=== PATIENT | female | born 1960 | race Caucasian/White ===

== ENCOUNTER 2019-06-28 21:26 | Emergency (ER) | payer OTHER, SELFPAY ==
--- NOTE | ~2019-06-28 | CT_ITS ---
EXAMINATION: CT abdomen pelvis w con INDICATION: Left lower quadrant pain TECHNIQUE: Computed tomographic images of the abdomen and pelvis were obtained after the administrati on of 100 cc of Omnipaque 350 intravenous contrast. The dose-length product (DLP) was 541.15 mGy-cm. Automated exposure control and iterative reconstruction technique were employed. COMPARISON: None available FINDINGS: The lung bases are clear. The heart size is normal. There is an 11 mm cyst of the liver. Th e spleen, pancreas, gallbladder, and adrenal glands are normal. There is a 2 mm nonobstructing stone in the left kidney upper pole. The right kidney is unremarkable. No pathologically enlarged abdominal or pelvic lymph nodes are identified. The appendix is normal. Colonic diverticulosis is noted. There is wall thickening and fat stranding adjacent to the proximal sigmoid colon. No free intraperitoneal gas or perisigmoid abscess is identified. There is mild lumbar spondylosis. IMPRESSION: 1. Uncomplicated sigmoid diverticulitis. Reviewed, dictated and finalized at location A.
[2019-06-28 21:28] VITALS: BP 147/98; PULSE 96; RESP 16; TEMP 36.6; O2SAT 100
[2019-06-28 21:50] LABS: Basophils Absolute Auto 0.1 K/mm3 (0.0-0.1); Basophils Percent Auto 0.5 % (0.2-1.2); Eosinophils Absolute Auto 0.1 K/mm3 (0-0.3); Eosinophils Percent Auto 0.5 % (0-4.4); Hematocrit 41.5 % (37.0-47.0); Hemoglobin 13.9 g/dL (12.0-15.0); Immature Granulocyte Absolute 0.04 K/mm3 (0.00-0.031); Immature Granulocyte Percent A 0.3 % (0-0.5); Lymphocytes Absolute Auto 2.24 K/mm3 (0.9-3.2); Lymphocytes Percent Auto 18.6 % (18.3-44.2); Mean Corpuscular HGB Conc 33.5 g/dl (32-36); Mean Corpuscular Hemoglobin 30.2 pg (26-34); Mean Platelet Volume 9.5 fl (7.4-10.4); Monocytes Absolute Auto 1.1 K/mm3 (0.1-0.6); Monocytes Percent Auto 9.2 % (2.6-8.5); Neutrophils Absolute Auto 8.5 K/mm3 (1.3-6.7); Neutrophils Percent Auto 70.9 % (45.5-73.1); Platelet Count Result 317 k/mm3 (150-375); Red Blood Count 4.61 M/mm3 (4.2-5.4)
[2019-06-28 21:53] LABS: Add Urine Microscopic? NO; Appearance Urine Clear (Clear); Bilirubin Urine Negative (Negative); Blood Urine Negative (Negative); Color Urine Straw (Yellow); Glucose Urine UA Negative (Negative); Ketones Urine Negative (Negative); Leukocyte Esterase Ur Negative LEU/UL (Negative); Nitrate Urine Negative (Negative); Protein Urine Negative (Negative); Urobilinogen Urine Negative mg/dL (<2.0)
[2019-06-28 22:02] LABS: Alanine Aminotransferase 19 U/L (4-35); Albumin Level 5.1 g/dL (3.5-5.1); Alkaline Phosphatase 96 U/L (38-126); Aspartate Amino Transferase 39 U/L (14-36); Bilirubin,Total 2.1 mg/dL (0.2-1.3); Blood Urea Nitrogen 14 mg/dL (7-17); Calcium 9.5 mg/dL (8.4-10.2); Carbon Dioxide 33 mmol/L (22-30); Chloride 96 mmol/L (98-107); Estimated Glomerular Filt Rate > 60; Glucose 112 mg/dL (65-105); Lipase 110 U/L (23-300); Potassium 3.5 mmol/L (3.4-5.0); Sodium 136 mmol/L (137-145)
--- NOTE | 2019-06-28 22:33 | ED.ABDPAIN ---
HPI - Abdominal Pain General Chief Complaint: Abdominal Pain Stated Complaint: abd pain Time Seen by Provider: 06/28/19 22:26 Source: patient Mode of arrival: ambulatory Limitations: no limitations History of Present Illness HPI narrative: Patient is a 58-year-old female who presents to the emergency department complaint of left lower quadrant pain. Patient reports having a rumbling sensation in her abdomen 2 days ago that subsided. She states she felt pretty well yesterday. She states today she has had pain in the left lower quadrant of her abdomen since approximately 9:00 this morning. She took a couple of stool softeners and some antiacid this morning and now has developed a little bit of diarrhea. She states the pain seems to improve somewhat when passing gas. She took a Bentyl approximately 8 PM this evening without any relief. Patient does report a prior history of diverticulitis. MD elicited complaint: abdominal pain Review of Systems Review of Systems: All systems reviewed & are unremarkable except as noted in HPI and below Gastrointestinal: Gastrointestinal: Reports abdominal pain, Reports diarrhea, Denies nausea and Denies vomiting PMFSH Past Medical History Medical History (Updated 06/29/19 @ 00:14 by Kathy Torres MD) Diverticulitis GERD (gastroesophageal reflux disease) Hyperlipidemia Vitamin D deficiency Surgical History Surgical History (Updated 06/28/19 @ 22:34 by Kathy Torres MD) History of section Social History Social History (Updated 06/28/19 @ 22:34 by Kathy Torres MD) Smoking status: Never smoker Exam Const: General: cooperative, no acute distress and alert Nutritional Appearance: well nourished Orientation/consciousness: patient oriented x3 Limitations: no limitations Resp: Effort & Inspection: normal respiratory effort Auscultation: clear to auscultation bilaterally Cardio: Rate: regular rate Rhythm: regular rhythm GI: GI Palp: Yes Soft to palpation, Yes Tenderness to palpation present (GI) (Focal left lower quadrant), No Guarding due to palpation present (GI) and No Rebound tenderness present Auscultation: normal bowel sounds Back/Spine/Pelvis: Back: no CVA tenderness Thoracic/Lumbar Spine: thoraco-lumbar ROM normal Skin: General skin exam: normal color and no rashes or lesions noted Neuro: General: patient oriented x3 Cognition (Neuro): normal cognition Speech: normal speech Extrem: General: normal to inspection, full ROM and no clubbing, cyanosis or edema Psych: Mental Status: mental status grossly normal Affect: normal affect Attitude: cooperative Course Course Emergency Course: Patient presents with left lower quadrant pain and history of diverticulitis in the past. Patient with findings of uncomplicated diverticulitis noted on CT scan. Patient with no grossly abnormal labs aside from bilirubin is slightly elevated. Will refer patient to on-call primary care physician as she is new to the area. Advised to call the office in the morning to schedule follow-up. Will prescribe Augmentin. Patient reports history of stomach upset in the past. Advised to take with food Vital Signs Vital signs: Vital Signs Temperature 97.8 F 06/28/19 21:28 Pulse Rate 96 06/28/19 21:28 Respiratory Rate 16 06/28/19 21:28 Blood Pressure 147/98 H 06/28/19 21:28 Pulse Oximetry 100 06/28/19 21:28 Temperature 97.3 F L 06/28/19 23:04 Pulse Rate 93 06/28/19 23:04 Respiratory Rate 20 06/28/19 23:04 Blood Pressure 155/93 H 06/28/19 23:04 Pulse Oximetry 100 06/28/19 23:04 MDM - Abdominal Pain Lab Data Attestation: I reviewed the patient's lab results. Result diagrams: 06/28/19 21:42 06/28/19 21:42 Labs: Lab Results 06/28/19 06/28/19 06/28/19 Range/Units 21:42 21:42 21:43 WBC 12.0 H (4.5-10.0) K/mm3 RBC 4.61 (4.2-5.4) M/mm3 Hgb 13.9 (12.0-15.0) g/dL Hct 41.5 (37.0-47
[2019-06-28 23:04] VITALS: BP 155/93; PULSE 93; RESP 20; TEMP 36.3; O2SAT 100
[2019-06-29 00:23] VITALS: BP 145/74; PULSE 84; RESP 19; TEMP 36.8; O2SAT 100
[2019-06-29] MEDS: AMOXICILLIN/CLAVULANATE K 875-125 MG TAB 1 TABLET PO (00:23)
== END 2019-06-29 00:24 | disposition home or self-care (01) ==
PROVIDERS: Emergency Provider Emergency Medicine
DX: K57.32 Diverticulitis of large intestine without perforation or abscess without bleeding (principal); K21.9 Gastro-esophageal reflux disease without esophagitis; E78.5 Hyperlipidemia, unspecified; E55.9 Vitamin D deficiency, unspecified
CPT/HCPCS: 36415; 74177; 80053; 81003; 83690; 85025; 96365; 99284; A9270; J0131; Q9967

== ENCOUNTER → 2019-08-28 10:25 | Outpatient (CLI) | payer OTHER, SELFPAY ==
--- NOTE | ~2019-08-28 | MR_ITS ---
EXAMINATION: MR brain IAC wo con EXAM DATE: 08/28/2019 11:23 INDICATION: Dizziness. Occipital headaches. TECHNIQUE: Multi-sequential, multiplanar MR images of the brain, brainstem, internal auditory canals were obtained without contrast. Whole brain sagittal T1, axial diffusion, gradient echo (T2*), T1, T 2, FLAIR sequences obtained. High resolution coronal 3-D FIESTA, coronal T1 FSE, axial T1 FSPGR of t he internal auditory canals. There is no prior study for comparison. FINDINGS: No evidence of mastoid or middle ear opacification. The 7th/8th cranial nerve complexes a re symmetric, normal in course and caliber. No cerebellopontine angle masses. Posterior fossa unrem arkable. There are no areas of restricted diffusion to suggest acute infarction. There is no acute hemorrhage seen on the T2*, a hemosiderin sensitive sequence. No intraparenchymal brain mass lesion. There is mild periventricular and subcortical T2/FLAIR signal hyperintensity, nonspecific but probably related to small vessel ischemic disease (microangiopathy). There is mild prominence of the sulci and vent ricles related to cerebral atrophy. There are no extra-axial collections. Flow voids are seen in t he cerebral arteries on the T2-weighted sequences consistent with their expected patency. The orbits are unremarkable. Soft tissue is unremarkable. IMPRESSION: 1. No acute intracranial findings. 2. Chronic age related findings. Reviewed, dictated and finalized at location A.
== END ==
PROVIDERS: PCP Physician Assistant; Visit Provider Physician Assistant
DX: R42 Dizziness and giddiness (principal); R93.0 Abnormal findings on diagnostic imaging of skull and head, not elsewhere classified
CPT/HCPCS: 70551

== ENCOUNTER → 2019-09-01 10:04 | Outpatient (CLI) | payer OTHER, SELFPAY ==
--- NOTE | ~2019-09-01 | US_ITS ---
EXAMINATION: US aorta DATE: 09/01/2019 10:39 INDICATION: Hypertension and hypercholesterolemia TECHNIQUE: Grayscale, color Doppler, and pulsed Doppler images of the aorta and common iliac arteries were obtained. COMPARISON: None. FINDINGS: Maximum vascular dimensions are as follows: Proximal aorta: 2.7 cm Mid aorta: 2.0 cm Distal aorta: 1.8 cm Right common iliac artery: 1.1 cm Left common iliac artery: 0.9 cm There is no evidence of abdominal aortic aneurysm. IMPRESSION: 1. No sonographic evidence of abdominal aortic aneurysm. Reviewed, dictated and finalized at location A.
--- NOTE | ~2019-09-01 | US_ITS ---
EXAMINATION: US carotid duplex BI DATE: 09/01/2019 10:39 INDICATION: Vertigo. TECHNIQUE: Grayscale, color Doppler, and pulsed Doppler images of the cervical carotid arteries were obtained. The degree of vessel stenosis is placed in one of the following categories: normal, <50%, 5 0-69%, >=70% but less than near-occlusion, near-occlusion, or total occlusion. Note that percent sten osis relative to normal distal artery lumen diameter is indirectly measured from velocity measurement s as described by Mehul, et al. Radiology 2003; 229:340-346. COMPARISON: None. FINDINGS: RIGHT: The right common carotid artery (CCA) peak systolic velocity (PSV) is 99 cm/s. The right internal car otid artery (ICA) PSV is 77 cm/s. The right ICA end-diastolic velocity (EDV) is 36 cm/s. The right IC A/CCA PSV ratio is 1.3. Grayscale and color Doppler images yield an estimate of <50% diameter reducti on from plaque in the ICA. There is antegrade flow in the right vertebral artery. LEFT: The left CCA PSV is 84 cm/s. The left ICA PSV is 83 cm/s. The left ICA EDV is 30 cm/s. The left ICA/C CA PSV ratio is 1.6. Grayscale and color Doppler images yield an estimate of <50% diameter reduction from plaque in the ICA. There is antegrade flow in the left vertebral artery. IMPRESSION: 1. <50% stenosis in the right internal carotid artery. 2. <50% stenosis in the left internal carotid artery. Reviewed, dictated and finalized at location A.
== END ==
PROVIDERS: PCP Physician Assistant; Visit Provider Physician Assistant
DX: I65.23 Occlusion and stenosis of bilateral carotid arteries (principal); Z82.49 Family history of ischemic heart disease and other diseases of the circulatory system
CPT/HCPCS: 76775; 93880

== ENCOUNTER 2019-11-06 12:52 | Outpatient (CLI) | payer OTHER, SELFPAY ==
--- NOTE | 2019-11-06 | ECHO_ITS ---
Patient Info Name: Kathy Mattson Age: 59 years : 1960 Gender: Female Ht: 67 in Wt: 165 lbs BSA: 1.89 m2 BP: 149 / 93 mmHg Heart Rhythm: Sinus Rhythm Exam Date: 11/06/2019 1:20 PM Exam Location: [facility] Patient Status: Outpatient Admit Date: 11/06/2019 Staff Ordering Physician: PHYSICIAN NOT ON STAFF, NONSTAFF Hand Developer: Bonnie Zelaya RDCS Attending Provider: PHYSICIAN NOT ON STAFF, NONSTAFF Exam Type: CA echo doppler color flow Study Info Indications R00.2 - Palpitations Complete two-dimensional, color flow and Doppler transthoracic echocardiogram is performed. Summary 1. Complete two-dimensional, color flow and Doppler transthoracic echocardiogram is performed. 2. Left ventricular chamber dimension is normal. 3. Left ventricular systolic function is normal, estimated at 55-60%. 4. Right ventricular chamber dimension is normal. 5. Trivial mitral and tricuspid insufficiency. Left Ventricle Left ventricular chamber dimension is normal. Left ventricular systolic function is normal, estimated at 55-60%. The left ventricular diastolic function is normal. Right Ventricle Right ventricular chamber dimension is normal. Left Atria Left atrial chamber dimension is normal. Right Atria Right atrial chamber dimension is normal. Aortic Valve The aortic valve is normal. Pulmonic Valve The pulmonic valve is normal. Mitral Valve The mitral valve has normal leaflets. There is trace mitral valve regurgitation. Tricuspid Valve The tricuspid valve leaflets are normal. There is mild tricuspid valve regurgitation. Pericardium/Pleural The pericardium appears normal. Aorta The aortic root size at the sinus of Valsalva is normal. Left Ventricular Outflow Tract Name Value Normal LVOT 2D LVOT Diameter 2.0 cm LVOT Doppler LVOT Peak Gradient 3 mmHg LVOT Mean Gradient 1 mmHg LVOT VTI 17 cm LVOT VTI/AV VTI Ratio 0.8 LVOT Stroke Volume 51 ml LVOT CO 3.1 l/min LVOT CI 1.7 l/min/m2 Mitral Valve Name Value Normal MV Doppler MV Decel Bowie 482 cm/s2 MV PHT 47 ms MV Area (PHT) 4.7 cm2 4.0-5.0 MV Regurgitation Doppler MR Peak Gradient 165 mmHg MV Diastolic Function MV E Peak Velocity 78 cm/s MV A Peak Velocity 85 cm/s MV E/A 0.9 MV Decel Time
== END 2019-11-06 12:53 | disposition home or self-care (01) ==
PROVIDERS: PCP Physician Assistant
DX: R00.2 Palpitations (principal)
CPT/HCPCS: 93306

== ENCOUNTER → 2019-12-14 10:24 | Outpatient (CLI) | payer OTHER, SELFPAY ==
--- NOTE | ~2019-12-14 | XR_ITS ---
EXAMINATION: XR knee LT min 4V DATE: 12/14/2019 10:51 INDICATION: Left knee pain TECHNIQUE: Weight bearing anteroposterior and Vera, sunrise, and flexed lateral views of the lef t knee were obtained COMPARISON: None. FINDINGS: Alignment is normal. No fracture. Joint spaces are normal. No joint effusion/layering lipohemarthros is. Soft tissues are unremarkable. IMPRESSION: 1. Negative left knee radiographs. Reviewed, dictated and finalized at location A. COACH
== END ==
PROVIDERS: PCP Physician Assistant; Visit Provider Physician Assistant
DX: M25.562 Pain in left knee (principal)
CPT/HCPCS: 73564

== ENCOUNTER 2020-05-31 20:31 | Emergency (ER) | payer OTHER, SELFPAY ==
--- NOTE | ~2020-05-31 | CT_ITS ---
EXAMINATION: CT abdomen pelvis w con DATE: 05/31/2020 22:57 INDICATION: Abdominal pain and nausea TECHNIQUE: Computed tomography (CT) of the abdomen and pelvis was performed with 100 cc Omnipaque 350 intravenous contrast. The dose-length product was 473.09 mGy-cm. Automated exposure control and iter ative reconstruction technique were employed. COMPARISON: CT dated 06/28/2019. FINDINGS: Lung bases are unremarkable. No significant pleural or pericardial effusion. The liver, spleen, pancreas, adrenal glands and right kidney are unremarkable. There is a 3 mm nonobs tructing left renal stone. Nonobstructing bowel gas pattern. Normal appendix. Colonic diverticulosis without evidence for divert iculitis. There is a focal calcification in a urachal remnant. There are pelvic phleboliths. No signi ficant vascular abnormality. No lymphadenopathy. Mild osteoarthritis of the hips. Mild lumbar spondyl osis. IMPRESSION: 1. No acute abdominal abnormality. Reviewed, dictated and finalized at location A.
[2020-05-31 20:34] VITALS: BP 175/97; PULSE 72; RESP 18; TEMP 36.4; O2SAT 100
[2020-05-31 20:49] LABS: Basophils Percent Auto 0.5 % (0.2-1.2); Eosinophils Absolute Auto 0.1 K/mm3 (0-0.3); Eosinophils Percent Auto 1.3 % (0-4.4); Hematocrit 39.7 % (37.0-47.0); Hemoglobin 13.2 g/dL (12.0-15.0); Immature Granulocyte Absolute 0.02 K/mm3 (0.00-0.031); Immature Granulocyte Percent A 0.3 % (0-0.5); Lymphocytes Absolute Auto 2.66 K/mm3 (0.9-3.2); Lymphocytes Percent Auto 34.8 % (18.3-44.2); Mean Corpuscular HGB Conc 33.2 g/dl (32-36); Mean Corpuscular Hemoglobin 30.4 pg (26-34); Mean Corpuscular Volume 91.5 fl (80-100); Mean Platelet Volume 8.9 fl (7.4-10.4); Monocytes Absolute Auto 0.7 K/mm3 (0.1-0.6); Monocytes Percent Auto 8.9 % (2.6-8.5); Neutrophils Absolute Auto 4.2 K/mm3 (1.3-6.7); Neutrophils Percent Auto 54.2 % (45.5-73.1); Platelet Count Result 290 k/mm3 (150-375); Red Blood Count 4.34 M/mm3 (4.2-5.4); Red Cell Distribution Width 12.4 % (11.5-14.5); White Blood Count 7.7 K/mm3 (4.5-10.0)
[2020-05-31 21:13] LABS: Alanine Aminotransferase 16 U/L (4-35); Albumin Level 4.8 g/dL (3.5-5.1); Alkaline Phosphatase 77 U/L (38-126); Anion Gap 7 mmol/L (8-16); Aspartate Amino Transferase 37 U/L (14-36); Bilirubin,Total 1.2 mg/dL (0.2-1.3); Blood Urea Nitrogen 19 mg/dL (7-17); Calcium 9.1 mg/dL (8.4-10.2); Carbon Dioxide 31 mmol/L (22-30); Chloride 101 mmol/L (98-107); Estimated CRCL calculation 82 ml/min; Estimated Glomerular Filt Rate > 60; Glucose 110 mg/dL (65-105); Lipase 164 U/L (23-300); Potassium 3.5 mmol/L (3.4-5.0); Sodium 139 mmol/L (137-145)
--- NOTE | 2020-05-31 21:23 | ED.GENADULT ---
HPI - General Adult General Chief complaint: Nausea/Vomiting/Diarrhea Stated complaint: abd pain, nausea Time Seen by Provider: 05/31/20 21:21 Source: patient and family Mode of arrival: ambulatory Limitations: no limitations History of Present Illness HPI narrative: Patient is 59 years old white female presented to the emergency room with intermittent pain across mid abdomen with nausea for the last 7 days. The pain is gas-like feeling. Get better after she passes gas, nothing make it worse. Patient got [employer] vaccine few weeks ago and and was concerned about the side effect of that vaccine. Which mentioned can cause abdominal pain. Patient denies any fever, chills, urinary symptoms, vaginal bleeding or discharge. No history of abdominal surgery. Review of Systems Review of Systems: Narrative: CONSTITUTIONAL: Denies fever, chills, or sweats. EYES: Denies visual changes, redness, or discharge. ENT: Denies rhinorrhea, congestion, sore throat, or otalgia. CARDIOVASCULAR: Denies chest pain, palpitations, or edema. RESPIRATORY: Denies cough or dyspnea. GASTROINTESTINAL: Denies abdominal pain, nausea, vomiting, or diarrhea. GENITOURINARY: Denies dysuria or hematuria. SKIN: Denies rash or itching. MUSCULOSKELETAL: Denies back pain, joint pain, or myalgia. NEUROLOGIC: Denies headache, numbness, or weakness. PSYCHIATRIC: Denies anxiety or depression. PMFSH Past Medical History Medical History Diverticulitis GERD (gastroesophageal reflux disease) Hyperlipidemia Vitamin D deficiency Surgical History Surgical History History of section Social History Social History Smoking status: Never smoker Exam Narrative: Exam Narrative: General appearance: Well-developed, well-nourished Skin: Normal color Head: Normocephalic, nontraumatic Eyes: Clear conjunctiva ENT: Oropharynx normal, ears normal, nose normal Neck: Supple, nontender Chest and respiratory: Airway patent, no respiratory distress, no accessory muscle use Heart: Regular rate/rhythm Abdomen: Soft, slight diffuse tenderness, no organomegaly, quiet bowel sounds, no guarding or rebound Vascular: Normal peripheral pulses, normal capillary refill. Musculoskeletal: Normal range of motion, nontender back Neurologic: Alert and oriented ?3, FOOD STAND MANAGER is normal as tested, no gross motor deficit Course Course Emergency Course: Stable Vital Signs Vital signs: Vital Signs Temperature 36.4 C L 05/31/20 20:34 Pulse Rate 72 05/31/20 20:34 Respiratory Rate 18 05/31/20 20:34 Blood Pressure 175/97 H 05/31/20 20:34 Pulse Oximetry 100 05/31/20 20:34 Temperature 36.4 C L 05/31/20 20:34 Pulse Rate 72 05/31/20 20:34 Respiratory Rate 18 05/31/20 20:34 Blood Pressure 175/97 H 05/31/20 20:34 Pulse Oximetry 100 05/31/20 20:34 Medical Decision Making MDM Narrative Medical decision making narrative: Patient presents with abdominal pain and nausea, anxious about the possibility of COVID-19 vaccine causing her abdominal pain. Labs, CT abdomen pelvis with IV contrast ordered. Please look at my differential diagnosis below Differential Diagnosis Differential Diagnosis: Colitis, diverticulitis, urinary tract infection, cholecystitis, constipation, stress related symptoms Vital Signs Vital Signs: Vital Signs Temperature 36.4 C L 05/31/20 20:34 Pulse Rate 72 05/31/20 20:34 Respiratory Rate 18 05/31/20 20:34 Blood Pressure 175/97 H 05/31/20 20:34 Pulse Oximetry 100 05/31/20 20:34 Temperature 36.4 C L
[2020-05-31 21:26] LABS: Add Urine Microscopic? NO; Appearance Urine Clear (Clear); Bilirubin Urine Negative (Negative); Blood Urine Negative (Negative); Color Urine Straw (Yellow); Glucose Urine UA Negative (Negative); Ketones Urine Negative (Negative); Leukocyte Esterase Ur Negative LEU/UL (Negative); Nitrate Urine Negative (Negative); Protein Urine Negative (Negative); Specific Grav Ur 1.009 (1.001-1.035); Urobilinogen Urine Negative mg/dL (<2.0)
[2020-05-31] MEDS: SODIUM CHLORIDE 0.9% IV 1,000 ML 999 ML IV CONT (21:35)
[2020-05-31 23:22] VITALS: BP 132/81; PULSE 79; RESP 18; O2SAT 97
== END 2020-05-31 23:23 | disposition home or self-care (01) ==
PROVIDERS: Emergency Provider Emergency Medicine; PCP Physician Assistant
DX: R10.84 Generalized abdominal pain (principal); K21.9 Gastro-esophageal reflux disease without esophagitis; E78.5 Hyperlipidemia, unspecified; E55.9 Vitamin D deficiency, unspecified
CPT/HCPCS: 36415; 74177; 80053; 81003; 83690; 85025; 96360; 96361; 99284; J7030; Q9967

== ENCOUNTER 2020-10-17 03:25 | Emergency (ER) | payer OTHER, SELFPAY ==
--- NOTE | ~2020-10-17 | XR_ITS ---
EXAMINATION: XR chest 2V DATE: 10/17/2020 04:00 INDICATION: Tachycardia. TECHNIQUE: Frontal and lateral views of the chest were obtained. COMPARISON: CT abdomen and pelvis 05/31/2020 FINDINGS: There is mild atelectasis at left lung base. No pleural effusion or pneumothorax. The heart size is normal. IMPRESSION: 1. Mild atelectasis at left lung base. Reviewed, dictated and finalized at location A.
--- NOTE | 2020-10-17 03:27 | ECG_ITS ---
Measurements Intervals [place] Rate: 92 P: 63 OK: 177 QRS: 62 QRSD: 88 T: 46 QT: 338 QTc: 419 Interpretive Statements SINUS RHYTHM POSSIBLE LEFT ATRIAL ENLARGEMENT BASELINE ARTIFACT- I, II, III, AVR, AVL, AVF, V1-V6 BORDERLINE ECG Electronically Signed On 10-17-2020 8:23:09 CDT by Ryan Bear D.O.
[2020-10-17 03:29] VITALS: BP 164/97; PULSE 92; RESP 13; TEMP 38; O2SAT 100
[2020-10-17 04:05] LABS: Basophils Percent Auto 0.7 % (0.2-1.2); Eosinophils Absolute Auto 0.1 K/mm3 (0-0.3); Eosinophils Percent Auto 0.9 % (0-4.4); Hematocrit 41.8 % (37.0-47.0); Hemoglobin 13.6 g/dL (12.0-15.0); Immature Granulocyte Absolute 0.02 K/mm3 (0.00-0.031); Immature Granulocyte Percent A 0.4 % (0-0.5); Lymphocytes Absolute Auto 1.52 K/mm3 (0.9-3.2); Lymphocytes Percent Auto 26.8 % (18.3-44.2); Mean Corpuscular HGB Conc 32.5 g/dl (32-36); Mean Corpuscular Hemoglobin 29.7 pg (26-34); Mean Corpuscular Volume 91.3 fl (80-100); Mean Platelet Volume 9.9 fl (7.4-10.4); Monocytes Absolute Auto 0.4 K/mm3 (0.1-0.6); Monocytes Percent Auto 7.4 % (2.6-8.5); Neutrophils Absolute Auto 3.6 K/mm3 (1.3-6.7); Neutrophils Percent Auto 63.8 % (45.5-73.1); Platelet Count Result 336 k/mm3 (150-375); Red Blood Count 4.58 M/mm3 (4.2-5.4); Red Cell Distribution Width 12.5 % (11.5-14.5); White Blood Count 5.7 K/mm3 (4.5-10.0)
[2020-10-17 04:14] LABS: INR 0.9; Prothrombin Time 12.2 Seconds (11.1-14.7)
[2020-10-17 04:15] LABS: Partial Thromboplastin Time 24.1 SECONDS (22.3-36.8)
[2020-10-17 04:57] VITALS: BP 151/89; PULSE 77; RESP 14; O2SAT 97
--- NOTE | 2020-10-17 06:11 | ED.ARRPALP ---
HPI - Arrhythmia/Palpitations General Chief Complaint: Arrhythmia/Palpitations Stated Complaint: rapid heart rate Time Seen by Provider: 10/17/20 03:28 History of Present Illness HPI narrative: Patient presents with fast heart rate. Reports a history of SVT with intermittent episodes of of tachycardia for which she is usually able to perform vagal maneuvers and that alleviates her symptoms. This morning she developed fast heart rate as her heart rate was in the 140s. 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 Reports on arrival to the ER she is feeling much improved. She is denying any active chest pain, shortness of breath, fevers, cough, congestion. Related Data Allergies Allergy/AdvReac Type Severity Reaction Status Date / Time azithromycin Allergy Palpitation Verified 10/17/20 04:25 s doxycycline Allergy Hives Verified 10/17/20 04:25 aspirin AdvReac Other Verified 10/17/20 04:25 Review of Systems Review of Systems: CONSTITUTIONAL: Denies fever, chills, or sweats. EYES: Denies visual changes, redness, or discharge. ENT: Denies rhinorrhea, congestion, sore throat, or otalgia. CARDIOVASCULAR: Denies chest pain, palpitations, or edema. RESPIRATORY: Denies cough or dyspnea. GASTROINTESTINAL: Denies abdominal pain, nausea, vomiting, or diarrhea. GENITOURINARY: Denies dysuria or hematuria. SKIN: Denies rash or itching. MUSCULOSKELETAL: Denies back pain, joint pain, or myalgia. NEUROLOGIC: Denies headache, numbness, dizziness, or weakness. PSYCHIATRIC: Denies anxiety or depression. All systems reviewed & are unremarkable except as noted in HPI and below PMFSH Past Medical History Medical History Diverticulitis GERD (gastroesophageal reflux disease) Hyperlipidemia Vitamin D deficiency Surgical History Surgical History History of section Social History Social History Smoking status: Never smoker Exam Narrative: GENERAL: Well-appearing, well-nourished, and in no acute distress. HEAD: Normocephalic, atraumatic. EYES: PERRLA and EOMI. ENT: Nares clear, no rhinorrhea or epistaxis. Mucous membranes moist. NECK: Supple. No masses. No JVD CHEST: Clear to auscultation. No respiratory distress. No wheezes rales or rhonchi HEART: Regular rate and rhythm. No murmur heard. Normal peripheral pulses. ABDOMEN: Soft, nontender, nondistended, normal active bowel sounds. EXTREMITIES: Normal range of motion. No edema. SKIN: Warm, dry, no rash. NEURO: No focal deficits. Alert and oriented x3. PSYCH: Normal mood and affect. Course Reevaluation(s) Reevaluation #1: Patient is resting comfortably labs and imaging reviewed with patient. With a negative work-up she is appropriate for outpatient monitoring. Patient comfortable outpatient plan. There is no tachycardia captured throughout her ER stay Date: 10/17/20 Time: 06:46 Vital Signs Vital signs: Vital Signs Temperature 38.0 C H 10/17/20 03:29 Pulse Rate 92 10/17/20 03:29 Respiratory Rate 13 10/17/20 03:29 Blood Pressure 164/97 H 10/17/20 03:29 Pulse Oximetry 100 10/17/20 03:29 Temperature 37.1 C 10/17/20 06:54 Pulse Rate 71 10/17/20 06:54 Respiratory Rate 14 10/17/20 06:54 Blood Pressure 131/78 10/17/20 06:54 Pulse Oximetry 98 10/17/20 06:54 MDM - Arrhythmia/Palpitations MDM Narrative Medical decision making narrative: H&P as above, vss, pt looks clinically well, exam reassuring, labs clinically unremarkable, img clinically unremarkable, additional labs/img considered, symptomatic relief available as needed, on reevaluation pt continues to looks clinically well. Suspect exacerbatio
[2020-10-17 06:24] LABS: Anion Gap 8 mmol/L (8-16); Blood Urea Nitrogen 13 mg/dL (7-17); Carbon Dioxide 27 mmol/L (22-30); Chloride 102 mmol/L (98-107); Potassium 3.6 mmol/L (3.4-5.0); Sodium 137 mmol/L (137-145)
[2020-10-17 06:25] LABS: Calcium 9.1 mg/dL (8.4-10.2); Estimated Glomerular Filt Rate > 60; Glucose 119 mg/dL (65-110)
[2020-10-17 06:32] LABS: Troponin I < 0.012 ng/mL (0.000-0.034)
[2020-10-17 06:54] VITALS: BP 131/78; PULSE 71; RESP 14; TEMP 37.1; O2SAT 98
== END 2020-10-17 06:57 | disposition home or self-care (01) ==
PROVIDERS: Emergency Provider Emergency Medicine; PCP Physician Assistant
DX: R00.2 Palpitations (principal); K21.9 Gastro-esophageal reflux disease without esophagitis; E78.5 Hyperlipidemia, unspecified; E55.9 Vitamin D deficiency, unspecified; R94.31 Abnormal electrocardiogram [ECG] [EKG]
CPT/HCPCS: 36415; 71046; 80048; 84484; 85025; 85055; 85610; 85730; 93005; 99284

== ENCOUNTER 2021-02-04 07:38 | Outpatient (CLI) | payer OTHER, SELFPAY ==
--- NOTE | ~2021-02-04 | US_ITS ---
EXAMINATION: US abdomen limited EXAM DATE: 02/04/2021 08:06 INDICATION: Nausea. TECHNIQUE: Multiple grayscale and Doppler images of the abdomen right upper quadrant were obtained (adonis y a technologist who performed the scan) and subsequently reviewed. There is no prior study for wilbur bowen. FINDINGS: The pancreatic head and body are normal in appearance. The pancreatic tail is not visualized. The l iver has normal echogenicity and contour. There are no focal liver lesions identified. There is no evidence of intrahepatic biliary duct dilation. Portal venous flow was seen in the hepatopedal, nor mal direction and has normal Doppler waveform. No right-sided hydronephrosis. Common bile duct measures 3 mm, which is normal. The gallbladder wall is normal in thickness, with ex pected amount of distention. No sonographic evidence of pericholecystic fluid. There is no cholelit hiases. Technologist performing exam reports patient did not demonstrate sonographic Botello's sign. Please note that this sign is less reliable in patients who have received pain medication. IMPRESSION: 1. Unremarkable abdominal ultrasound exam. Reviewed, dictated and finalized at location A. 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
== END 2021-02-04 07:39 | disposition home or self-care (01) ==
LOC: ANHIMG 07:38
PROVIDERS: PCP Physician Assistant; Visit Provider Physician Assistant
DX: R11.0 Nausea (principal)
CPT/HCPCS: 76705

== ENCOUNTER 2021-08-08 13:01 | Outpatient (CLI) | payer OTHER, SELFPAY ==
--- NOTE | ~2021-08-08 | XR_ITS ---
XR lumbar spine 2-3V DATE: 08/08/2021 13:26 INDICATION: Low back pain, left sciatica TECHNIQUE: AP, lateral, coned lateral lumbosacral views COMPARISON: None FINDINGS: There is osteopenia. There is minimal levoscoliosis. Normal alignment of the lumbar spine. No fracture or bone destruction is evident. The included lower thoracic and lumbar pedicles are intact. There is moderately severe degenerative disc disease at L5-S1 and mild or moderate degenerative disc disease at the remaining lumbar interspaces. No spondylolisthesis. The sacroiliac joints are intact. IMPRESSION: Osteopenia Minimal levoscoliosis. Multilevel degenerative disc disease, most prominent at L5-S1 Reviewed, dictated and finalized at location A.
== END 2021-08-08 13:02 | disposition home or self-care (01) ==
PROVIDERS: PCP Physician Assistant; Visit Provider Physician Assistant
DX: M54.42 Lumbago with sciatica, left side (principal); M85.88 Other specified disorders of bone density and structure, other site; M51.37 Other intervertebral disc degeneration, lumbosacral region; M51.36 Other intervertebral disc degeneration, lumbar region
CPT/HCPCS: 72100

== ENCOUNTER 2021-08-17 07:30 | Outpatient (CLI) | payer OTHER, SELFPAY ==
--- NOTE | ~2021-08-17 | MR_ITS ---
EXAMINATION: MR lumbar spine wo con DATE: 08/17/2021 08:23 INDICATION: Lumbago with sciatica and left-sided back and hip/leg pain. TECHNIQUE: Magnetic resonance imaging (MRI) of the lumbar spine was performed without intravenous con trast. Sequences included sagittal T2-weighted FSE, sagittal T2-weighted FS FSE, sagittal T1-weighted FSE, and axial T2-weighted FSE. COMPARISON: None FINDINGS: 6 mm lower lumbar levocurvature. Sagittal alignment is normal. Vertebral body heights are normal. Mil d right-sided and severe left-sided disc height loss at L5-S1 with left-sided degenerative fibrovascu lar endplate changes. Marrow signal is otherwise normal. Moderate right-sided predominant disc height loss at L4-L5. Mild right-sided disc height loss at L3-L4. The conus medullaris terminates at L1. Th ere is normal signal in the caudal spinal cord. Paravertebral soft tissues are unremarkable. The foll owing disc levels are specifically discussed: T12-L1: The disc does not extend beyond the endplate margin. There is mild to moderate bilateral face t joint osteoarthritis. There is no neural foraminal stenosis. There is no central canal stenosis. L1-L2: Disc is mildly bulging. There is mild to moderate bilateral facet joint osteoarthritis. There is minimal right and mild left neural foraminal stenosis. There is minimal central canal stenosis. L2-L3: Small bilateral foraminal zone disc protrusions. There is moderate bilateral facet joint osteo arthritis. There is mild left and minimal right neural foraminal stenosis. There is no central canal stenosis. L3-L4: Disc is mildly bulging. There is mild to moderate bilateral facet joint osteoarthritis. There is mild right neural foraminal stenosis. There is mild central canal stenosis. L4-L5: Disc is bulging. There is mild left and moderate right facet joint osteoarthritis. There is mo derate bilateral neural foraminal stenosis. There is mild central canal stenosis with narrowing of th e left and right lateral recesses. L5-S1: Disc is bulging. There is moderate bilateral facet joint osteoarthritis. There is moderate lef t and mild right neural foraminal stenosis. There is mild central canal stenosis with narrowing of th e lateral recesses, left greater than right. IMPRESSION: 1. Mild lower lumbar levocurvature with moderate spondylosis. Reviewed, dictated and finalized at location B.
== END 2021-08-17 07:31 | disposition home or self-care (01) ==
LOC: ANHIMG 07:33
PROVIDERS: PCP Physician Assistant; Visit Provider Physician Assistant
DX: M54.42 Lumbago with sciatica, left side (principal); M47.816 Spondylosis without myelopathy or radiculopathy, lumbar region; M41.86 Other forms of scoliosis, lumbar region
CPT/HCPCS: 72148

== ENCOUNTER 2022-06-05 10:31 | Outpatient (CLI) | payer OTHER, SELFPAY ==
--- NOTE | ~2022-06-05 | XR_ITS ---
Thoracic spine: Clinical Indication: Back pain AP and lateral views were performed. No fracture is seen. There is normal alignment of the vertebrae. The intervertebral disc spaces appe ar normal. Paravertebral soft tissues appear normal. Impression: No significant abnormalities noted. Reviewed, dictated and finalized at [facility]. Impression: No significant abnormalities noted.
== END 2022-06-05 10:32 | disposition home or self-care (01) ==
PROVIDERS: PCP Physician Assistant; Visit Provider Physician Assistant
DX: M54.6 Pain in thoracic spine (principal); M25.561 Pain in right knee
CPT/HCPCS: 72070; 73564

== ENCOUNTER 2022-07-19 11:43 | Emergency (ER) | payer OTHER, SELFPAY ==
[2022-07-19] VITALS (9 sets, daily range): BP systolic 138–164; BP diastolic 74–95; PULSE 67–83; RESP 14–18; TEMP 36.6; O2SAT 97–99
--- NOTE | ~2022-07-19 | CT_ITS ---
EXAMINATION: CT brain wo con DATE: 07/19/2022 13:59 INDICATION: Headache. Hypertension. Dizziness. TECHNIQUE: Computed tomography (CT) of the head was performed without intravenous contrast. The dose- length product was 529.67 mGy-cm. Automated exposure control and iterative reconstruction technique w ere employed. COMPARISON: None FINDINGS: Brain parenchymal volume is normal for age. There are scattered mild periventricular and pedersen bcortical white matter changes, most likely related to small vessel ischemic disease (microangiopathy ). Mild intracranial atherosclerosis. No ventriculomegaly or midline shift. Basilar cisterns are aguero nt. Paranasal sinuses and mastoids are pneumatized. No depressed skull fractures. IMPRESSION: 1. No acute intracranial abnormality. Reviewed, dictated and finalized at location A.
--- NOTE | ~2022-07-19 | XR_ITS ---
EXAMINATION: XR chest 2V 07/19/2022 12:05 INDICATION: Chest palpitations PROCEDURE: 2 view chest COMPARISON: 10/17/2020 FINDINGS: The lungs are clear. The lungs are hyperinflated which is consistent with, but not diagnost ic of chronic obstructive pulmonary disease. The cardiomediastinal silhouette is within normal limits . There are no pleural effusions. There is no pneumothorax suspected. IMPRESSION: 1: NO ACUTE CARDIOPULMONARY DISEASE. Reviewed, dictated and finalized at location A.
--- NOTE | 2022-07-19 11:46 | ECG_ITS ---
Measurements Intervals [place] Rate: 77 P: 72 MD: 164 QRS: 62 QRSD: 86 T: 62 QT: 359 QTc: 407 Interpretive Statements SINUS RHYTHM WITH OCCASIONAL VENTRICULAR PREMATURE COMPLEXES MINIMAL ST DEPRESSION [0.025+ mV ST DEPRESSION] COMPARED TO ECG 10/17/2020 03:32:58 ST (T WAVE) DEVIATION NOW PRESENT Electronically Signed On 07-19-2022 12:31:02 CDT by Janessa Hines M.D.
[2022-07-19 12:04] LABS: Basophils Absolute Auto 0.1 K/mm3 (0.0-0.1); Basophils Percent Auto 0.7 % (0.2-1.2); Eosinophils Absolute Auto 0.1 K/mm3 (0-0.3); Eosinophils Percent Auto 1.5 % (0-4.4); Hematocrit 40.8 % (37.0-47.0); Hemoglobin 13.5 g/dL (12.0-15.0); Immature Granulocyte Absolute 0.01 K/mm3 (0.00-0.031); Immature Granulocyte Percent A 0.1 % (0-0.5); Lymphocytes Absolute Auto 2.72 K/mm3 (0.9-3.2); Lymphocytes Percent Auto 40.2 % (18.3-44.2); Mean Corpuscular HGB Conc 33.1 g/dl (32-36); Mean Corpuscular Volume 90.7 fl (80-100); Monocytes Absolute Auto 0.6 K/mm3 (0.1-0.6); Monocytes Percent Auto 9.5 % (2.6-8.5); Neutrophils Absolute Auto 3.3 K/mm3 (1.3-6.7); Platelet Count Result 315 k/mm3 (150-375); Red Cell Distribution Width 12.8 % (11.5-14.5); White Blood Count 6.8 K/mm3 (4.5-10.0)
[2022-07-19 12:14] LABS: Alanine Aminotransferase 25 U/L (6-35); Albumin Level 4.9 g/dL (3.5-5.1); Alkaline Phosphatase 86 U/L (38-126); Anion Gap 7 mmol/L (8-16); Aspartate Amino Transferase 36 U/L (14-36); Bilirubin,Total 1.2 mg/dL (0.2-1.3); Blood Urea Nitrogen 19 mg/dL (7-17); Calcium 9.2 mg/dL (8.4-10.2); Carbon Dioxide 30 mmol/L (22-30); Chloride 101 mmol/L (98-107); Estimated CRCL calculation 80 ml/min; Estimated Glomerular Filt Rate > 60; Glucose 105 mg/dL (65-110); Lipase 176 U/L (23-300); Potassium 3.8 mmol/L (3.4-5.0); Sodium 138 mmol/L (137-145)
[2022-07-19 12:15] LABS: Partial Thromboplastin Time 27.4 SECONDS (22.3-36.8); Prothrombin Time 13.1 Seconds (11.1-14.7)
[2022-07-19 12:26] LABS: Troponin I < 0.012 ng/mL (0.000-0.034)
--- NOTE | 2022-07-19 13:03 | ED.CHESTPAIN ---
HPI - Chest Pain General Chief Complaint: Chest Pain Stated Complaint: heart problems Time Seen by Provider: 07/19/22 12:59 History of Present Illness HPI narrative: Patient is a 61-year-old female with a history of frequent PVCs and NSVT here due to palpitations this morning. Patient states that she was in her usual state of health on a walk this morning when she started to have several episodes of palpitations. She denies any associated lightheadedness, syncope, chest pain, shortness of breath. States that is not unusual for her to have palpitations due to her PVCs but today the episodes were more frequent and seem to last longer. She is has to take magnesium daily but has not taken this for the past week, attempted a magnesium pill before arrival without relief. She also takes metoprolol daily. Additionally, patient has had a frontal headache, felt somewhat dizzy and had slightly elevated blood pressures at home. She took a Tylenol prior to arrival with good relief of her headache. Denies history of hypertension. Related Data Allergies Allergy/AdvReac Type Severity Reaction Status Date / Time azithromycin Allergy Palpitation Verified 10/17/20 04:25 s doxycycline Allergy Hives Verified 10/17/20 04:25 aspirin AdvReac Other Verified 10/17/20 04:25 Review of Systems Review of Systems: Gen: Denies fevers or chills Eyes: Denies eye pain or visual change ENT: Denies congestion Respiratory: Denies shortness of breath or cough CV: Reports palpitations GI: Denies abdominal pain nausea, emesis or diarrhea : denies burning, urgency, frequency or hematuria Musculoskeletal: Denies back pain or muscle pain Neuro: Reports headache. Denies numbness, tingling, weakness or focal weakness Skin: Denies rash Except as documented, all other systems reviewed and negative [facility] Past Medical History Medical History Diverticulitis GERD (gastroesophageal reflux disease) Hyperlipidemia Vitamin D deficiency Surgical History Surgical History History of section Social History Social History Smoking status: Never smoker Exam Narrative: APPEARANCE: No acute distress, nontoxic, resting in bed HEENT: Normocephalic, atraumatic, OMM, TMs clear bilaterally EYES: PERRL, EOMI NECK: Supple, nontender, full range of motion without pain, no meningismus RESPIRATORY: No respiratory distress, clear to auscultation bilaterally with no rhonchi wheezing or rales CARDIOVASCULAR: RRR s murmur ABDOMINAL: Soft, nontender, nondistended MUSCULOSKELETAL: Moves all extremities. No clubbing, cyanosis or edema. NEURO: A and O ?3, following commands, speech normal, cranial nerves II through XII grossly intact,muscle strength 5 out of 5 bilateral upper and lower extremities SKIN:: Warm, dry. Normal Color PSYCHIATRIC: Normal affect/mood Course Vital Signs Vital signs: Vital Signs Temperature 97.8 F 07/19/22 11:48 Pulse Rate 83 07/19/22 11:48 Respiratory Rate 18 07/19/22 11:48 Blood Pressure 164/95 H 07/19/22 11:48 Pulse Oximetry 99 07/19/22 11:48 Oxygen Delivery Room Air 07/19/22 11:48 Temperature 97.8 F 07/19/22 11:48 Pulse Rate 67 07/19/22 16:05 Respiratory Rate 17 07/19/22 16:05 Blood Pressure 140/88 07/19/22 16:05 Pulse Oximetry 98 07/19/22 16:05 Oxygen Delivery Room Air 07/19/22 11:48 MDM - Chest Pain MDM Narrative Medical decision making narrative: 61-year-old female here for evaluation of several episodes of palpitations this morning associated with some slightly elevated blood pressures, frontal headache. No syncope/lightheadedness. Blood pressure is 164/95 on arrival which did come down to 138/79 without intervention. Cranial nerves are intact, heart and lungs are clear to auscultation, no evide
[2022-07-19 13:51] LABS: Magnesium 2.1 mg/dL (1.6-2.3)
[2022-07-19 15:36] LABS: Troponin I < 0.012 ng/mL (0.000-0.034)
== END 2022-07-19 16:07 | disposition home or self-care (01) ==
PROVIDERS: Emergency Medicine; Emergency Provider Physician Assistant; PCP Physician Assistant
DX: I49.3 Ventricular premature depolarization (principal); E78.5 Hyperlipidemia, unspecified; E55.9 Vitamin D deficiency, unspecified; K21.9 Gastro-esophageal reflux disease without esophagitis
CPT/HCPCS: 36415; 70450; 71046; 80053; 83690; 83735; 84443; 84484; 85025; 85610; 85730; 93005; 99284

== ENCOUNTER 2022-08-08 12:29 | Outpatient (CLI) | payer OTHER, SELFPAY ==
--- NOTE | ~2022-08-08 | MR_ITS ---
MRI of the thoracic spine Clinical History: Back pain Technique: Axial T2-weighted and gradient images, and sagittal T1-weighted, T2-weighted, and STIR heather ges were acquired. Findings: There is no fracture or subluxation of the thoracic spine. Probable mild relative kyphosis, but no other alignment abnormality seen. No bone marrow signal abnormality identified. There is no significant disc bulge or herniation at any thoracic level. No spinal canal stenosis or c ord compression identified. No epidural mass or collection seen. Paravertebral soft tissues are unremarkable. Impression: Probable nonspecific kyphosis, otherwise unremarkable exam. Reviewed, dictated and finalized at location . Impression: Probable nonspecific kyphosis, otherwise unremarkable exam.
== END 2022-08-08 12:30 | disposition home or self-care (01) ==
PROVIDERS: PCP Physician Assistant; Visit Provider Physician Assistant
DX: M54.6 Pain in thoracic spine (principal)
CPT/HCPCS: 72146

== ENCOUNTER 2022-10-13 15:06 | Emergency (ER) | payer OTHER, SELFPAY ==
--- NOTE | 2022-10-13 15:13 | PC.NURSE ---
PT IS LEAVING THE DEPARTMENT. SHE STATES THAT SHE HURTS TOO BAD TO WAIT LONG ALL THESE OTHER PEOPLE. I EXPLAINED TO THE PT THAT WE CURRENTLY DON'T HAVE AN OPEN BED FOR HER TO LAY DOWN. SHE DECIDED TO LEAVE AND GO OVER TO [facility] WHERE SHE HAD THE PROCEDURE.
== END 2022-10-13 15:13 | disposition left against medical advice (07) ==
PROVIDERS: PCP Physician Assistant
DX: Z53.21 Procedure and treatment not carried out due to patient leaving prior to being seen by health care provider (principal)
CPT/HCPCS: 99199

== ENCOUNTER 2023-06-22 21:15 | Emergency (ER) | payer OTHER, SELFPAY ==
--- NOTE | ~2023-06-22 | CT_ITS ---
Clinical Indication: Chest pain CT Scan of the Chest with Contrast: Technique: Contiguous sections were acquired throughout the chest after intravenous administration of 100 cc of Omnipaque 350. Dose reduction technique was used on this scan by utilizing automated expos ure control and iterative reconstruction technique. The dose-length product (DLP) was 219.84 mGy-cm. Findings: There is no evidence of any significant mediastinal, hilar or axillary lymphadenopathy. There is no f illing defect in the pulmonary arterial tree to suggest pulmonary embolus. There is no evidence of ao rtic dissection or aneurysm. There is no evidence of pleural or pericardial effusion. The lungs are clear. No pulmonary nodules or infiltrates are noted. Images through the upper abdomen reveal no abnormalities. Impression: No evidence of pulmonary embolus, aortic dissection, or aortic aneurysm. Clear lungs. Reviewed, dictated and finalized at [facility]. Impression: No evidence of pulmonary embolus, aortic dissection, or aortic aneurysm. Clear lungs.
--- NOTE | ~2023-06-22 | XR_ITS ---
EXAMINATION: XR chest 2V Exam Date/Time: 06/22/2023 21:35 CDT HISTORY: chest pain ACROSS ANTERIOR CHEST SINCE YESTERDAY Comparison: 07/19/2022. RESULT: Lines, tubes, and devices: None. Lungs and pleura: Emphysematous change, otherwise clear. Cardiomediastinal silhouette: Stable. Other: No acute osseous or upper abdominal finding. IMPRESSION: No acute cardiopulmonary process. Reviewed, dictated and finalized at location K.
--- NOTE | 2023-06-22 21:19 | ECG_ITS ---
SEE SCANNED COPY FOR CONFIRMED REPORT MTDD
[2023-06-22 21:22] VITALS: BP 164/98; PULSE 100; TEMP 36.9; O2SAT 98
[2023-06-22 21:44] LABS: Basophils Absolute Auto 0.1 K/mm3 (0.0-0.1); Basophils Percent Auto 0.7 % (0.2-1.2); Eosinophils Absolute Auto 0.1 K/mm3 (0-0.3); Eosinophils Percent Auto 0.7 % (0-4.4); Hematocrit 39.6 % (37.0-47.0); Hemoglobin 13.1 g/dL (12.0-15.0); Immature Granulocyte Absolute 0.02 K/mm3 (0.00-0.031); Immature Granulocyte Percent A 0.3 % (0-0.5); Lymphocytes Absolute Auto 3.13 K/mm3 (0.9-3.2); Lymphocytes Percent Auto 40.7 % (18.3-44.2); Mean Corpuscular HGB Conc 33.1 g/dl (32-36); Mean Corpuscular Hemoglobin 30.1 pg (26-34); Mean Platelet Volume 9.3 fl (7.4-10.4); Monocytes Absolute Auto 0.7 K/mm3 (0.1-0.6); Monocytes Percent Auto 9.6 % (2.6-8.5); Neutrophils Absolute Auto 3.7 K/mm3 (1.3-6.7); Platelet Count Result 285 k/mm3 (150-375); Red Blood Count 4.35 M/mm3 (4.2-5.4); Red Cell Distribution Width 12.7 % (11.5-14.5); White Blood Count 7.7 K/mm3 (4.5-10.0)
[2023-06-22 21:57] VITALS: PULSE 93
[2023-06-22 21:58] VITALS: BP 132/88; PULSE 96; RESP 12; TEMP 36.8; O2SAT 100
[2023-06-22 21:58] LABS: Alanine Aminotransferase 19 U/L (6-35); Albumin Level 4.7 g/dL (3.5-5.1); Alkaline Phosphatase 88 U/L (38-126); Anion Gap 6 mmol/L (4-12); Aspartate Amino Transferase 33 U/L (14-36); Bilirubin,Total 1.7 mg/dL (0.2-1.3); Blood Urea Nitrogen 14 mg/dL (7-17); Calcium 9.5 mg/dL (8.4-10.2); Carbon Dioxide 27 mmol/L (22-30); Chloride 101 mmol/L (98-107); Estimated CRCL calculation 85 ml/min; Estimated Glomerular Filt Rate > 60; Glucose 104 mg/dL (65-110); Lipase 119 U/L (23-300); Potassium 3.8 mmol/L (3.4-5.0); Sodium 134 mmol/L (137-145)
[2023-06-22 21:59] LABS: Partial Thromboplastin Time 27.7 Seconds (22.3-36.8); Prothrombin Time 13.9 Seconds (11.1-14.7)
[2023-06-22 22:02] VITALS: O2SAT 100
[2023-06-22 22:09] LABS: Troponin I < 0.012 ng/mL (0.000-0.034)
[2023-06-22 22:51] VITALS: BP 131/72; PULSE 75; RESP 16; O2SAT 97
--- NOTE | 2023-06-22 23:03 | ED.CHESTPAIN ---
HPI - Chest Pain General Chief Complaint: Chest Pain <KWAKU Land Last Filed: 06/23/23 02:43> Stated Complaint: chest pain <KWAKU Land Last Filed: 06/23/23 02:43> Time Seen by Provider: 06/22/23 22:05 <KWAKU Land Last Filed: 06/23/23 02:43> Source: patient <KWAKU Land Last Filed: 06/23/23 02:43> Mode of arrival: ambulatory <KWAKU Land Last Filed: 06/23/23 02:43> Limitations: no limitations <KWAKU Land Last Filed: 06/23/23 02:43> History of Present Illness HPI narrative: This is a 62-year-old female with PMH of PSVT, HLD who presents to the ED with chief complaint of chest pain intermittent for the past couple of days. Reports that she has had 3 bouts of distinct chest pain that radiates from the left side of the chest over to the right. She reports that it seems to come and go at random. States the pain lasts no more than a few seconds at a time. Not associated with exertion. Reports she had a normal stress test back in January and ultrasound of her aorta last year. Denies associated shortness of breath, syncope, nausea, vomiting, sweats, abdominal pain. Also mentions that she has been caring around her 8-month-old grandchild a lot lately and the chest pain is worse with certain positions. <KWAKU Land Last Filed: 06/23/23 02:43> Related Data Allergies/Adverse Reactions: Allergies Allergy/AdvReac Type Severity Reaction Status Date / Time azithromycin Allergy Palpitation Verified 10/17/20 04:25 s doxycycline Allergy Hives Verified 10/17/20 04:25 aspirin AdvReac Other Verified 10/17/20 04:25 <KWAKU Land Last Filed: 06/23/23 02:43> Review of Systems Review of Systems: All systems as dictated in HPI <KWAKU Land Last Filed: 06/23/23 02:43> [facility] Past Medical History Medical History: Medical History Diverticulitis GERD (gastroesophageal reflux disease) Hyperlipidemia Vitamin D deficiency <Karl Lozano PA-C - Last Filed: 06/23/23 02:43> Surgical History Surgical History: Surgical History History of section <Karl Lozano PA-C - Last Filed: 06/23/23 02:43> Social History Social History: Social History Smoking status: Never smoker <Karl Lozano PA-C - Last Filed: 06/23/23 02:43> Exam Narrative: GENERAL: Well-appearing, well-nourished, and in no acute distress. HEAD: Normocephalic, atraumatic. EYES: PERRLA and EOMI. ENT: Nares clear, no rhinorrhea or epistaxis. Mucous membranes moist. Oropharynx without tonsillar hypertrophy exudate or other lesions. NECK: Supple. No adenopathy or masses. CHEST: No respiratory distress. Clear to auscultation. No wheezes rales or rhonchi HEART: Regular rate and rhythm. No murmur heard. Normal peripheral pulses. ABDOMEN: Soft, nontender, nondistended, normal active bowel sounds. MSK: Normal range of motion. No edema. SKIN: Warm, dry, no rash. NEURO: Alert and oriented x3. No focal deficits. PSYCH: Normal mood and affect. <Karl Lozano PA-C - Last Filed: 06/23/23 02:43> Course Vital Signs Vital signs: Vital Signs Temperature 98.5 F 06/22/23 21:22 Pulse Rate 100 06/22/23 21:22 Blood Pressure 164/98 H 06/22/23 21:22 Pulse Oximetry 98 06/22/23 21:22 Oxygen Delivery Room Air 06/22/23 21:22 Temperature 98.2 F 06/22/23 21:58 Pulse Rate 78 06/23/23 04:38 Respiratory Rate 18 06/23/23 04:38 Blood Pressure 138/91 H 06/23/23 04:38 Pulse Oximetry 98 06/23/23 04:38 Oxygen Delivery Room Air 06/22/23 22:02 <Karl Lozano PA-C - Last Filed: 06/23/23 02:43> Vital Signs Temperature 98.5 F 06/22/23 21:22 Pulse Rate 100 06/22/23 21:22 Blood Pressu
[2023-06-22 23:16] VITALS: BP 131/88; PULSE 76; RESP 16; O2SAT 99
[2023-06-22 23:44] LABS: D Dimer 0.93 ug/mL (<0.48)
[2023-06-23] VITALS (9 sets, daily range): BP systolic 125–149; BP diastolic 83–91; PULSE 78–96; RESP 12–20; O2SAT 95–100
--- NOTE | 2023-06-23 00:10 | ECG_ITS ---
SEE SCANNED COPY FOR CONFIRMED REPORT MTDD
[2023-06-23 00:41] LABS: Troponin I < 0.012 ng/mL (0.000-0.034)
== END 2023-06-23 05:47 | disposition home or self-care (01) ==
PROVIDERS: Emergency Medicine; Emergency Provider Physician Assistant; PCP Physician Assistant
DX: R07.89 Other chest pain (principal); E78.5 Hyperlipidemia, unspecified; E55.9 Vitamin D deficiency, unspecified; K21.9 Gastro-esophageal reflux disease without esophagitis; R94.31 Abnormal electrocardiogram [ECG] [EKG]
CPT/HCPCS: 36415; 71046; 71275; 80053; 83690; 84484; 85025; 85380; 85610; 85730; 93005; 99284; Q9967

== ENCOUNTER 2023-10-26 05:31 | Emergency (ER) | payer MEDICARE, OTHER, SELFPAY ==
[2023-10-26] VITALS (8 sets, daily range): BP systolic 120–158; BP diastolic 70–89; PULSE 62–109; RESP 12–20; TEMP 36.5–36.7; O2SAT 98–100
--- NOTE | ~2023-10-26 | CT_ITS ---
EXAMINATION: CT abdomen pelvis w con DATE: 10/26/2023 08:50 INDICATION: Right lower quadrant abdominal pain. TECHNIQUE: Computed tomography (CT) of the abdomen and pelvis was performed with 100 mL Omnipaque 350 intravenous contrast. Automated exposure control and iterative reconstruction technique were employe d. The dose-length product was 371.68 mGy-cm. COMPARISON: CT abdomen and pelvis 05/31/2020 FINDINGS: The visualized portions of the lung bases are clear without pneumonia or pleural effusion. The heart size is normal. No pericardial effusion. The liver, gallbladder, spleen, pancreas, adrenal glands, and kidneys are normal. There is diverticulosis of the colon without evidence of diverticulit is. There are no dilated loops of bowel. The appendix is normal. There are no pathologically enlarged lymph nodes. There is physiologic fluid in the pelvis. There is severe lower lumbar spondylosis. IMPRESSION: 1. No etiology for the patient's symptoms. Reviewed, dictated and finalized at location A.
--- NOTE | 2023-10-26 07:57 | ED.ABDPAIN ---
HPI - Abdominal Pain General Chief Complaint: Abdominal Pain Stated Complaint: abd pain Time Seen by Provider: 10/26/23 07:44 History of Present Illness HPI narrative: 63 year old female presenting ED for evaluation for right lower quadrant pain that started last night approximately 10:00 p.m.. Patient does have prior history of diverticulitis but symptoms are typically on the left and patient's symptoms on the right today. Patient does have history of C-sections. Related Data Allergies Allergy/AdvReac Type Severity Reaction Status Date / Time azithromycin Allergy Palpitation Verified 10/17/20 04:25 s doxycycline Allergy Hives Verified 10/17/20 04:25 aspirin AdvReac Other Verified 10/17/20 04:25 iohexol AdvReac Palpitation Verified 10/26/23 09:53 [From contrast - CT, X-RAY] s sulfamethoxazole AdvReac Nausea and Verified 10/26/23 07:52 [From Bactrim] Vomiting trimethoprim [From Bactrim] AdvReac Nausea and Verified 10/26/23 07:52 Vomiting Review of Systems Review of Systems: All systems reviewed & are unremarkable except as noted in HPI and below PMFSH Past Medical History Medical History Diverticulitis GERD (gastroesophageal reflux disease) Hyperlipidemia Vitamin D deficiency Surgical History Surgical History History of section Social History Social History Smoking status: Never smoker Exam Narrative: APPEARANCE: Well appearing, no pain, no distress, well-nourished. HEAD: normocephalic, atraumatic. EYES: PERRLA/EOMI, conjunctivae clear. NOSE: Normal no drainage EARS:TMS clear with good light reflex. THROAT: Pharynx clear, no exudate. NECK: Supple. No adenopathy, no masses. RESPIRATORY: Airway patent, respirations nonlabored. Clear to auscultation bilaterally, no rales, rhonchi, wheezing. CARDIOVASCULAR: Regular rate and rhythm without murmurs rubs or gallops. ABDOMINAL: Soft, nontender, nondistended, normal bowel sounds MUSCULOSKELETAL: Moves all extremities. Strength/ROM intact, No edema, No calf tenderness. NEURO: Alert. Cranial nerves II through XII intact. Good gait. Good coordination SKIN: Warm, dry. Normal Color Course Course Emergency Course: Patient's symptoms resolved and patient was discharged home Vital Signs Vital signs: Vital Signs Temperature 98.1 F 10/26/23 05:34 Pulse Rate 74 10/26/23 05:34 Respiratory Rate 20 10/26/23 05:34 Blood Pressure 147/81 H 10/26/23 05:34 Pulse Oximetry 100 10/26/23 05:34 Oxygen Delivery Room Air 10/26/23 05:34 Temperature 97.7 F 10/26/23 09:51 Pulse Rate 72 10/26/23 09:51 Respiratory Rate 16 10/26/23 09:51 Blood Pressure 120/72 10/26/23 09:51 Pulse Oximetry 98 10/26/23 09:51 Oxygen Delivery Room Air 10/26/23 05:34 MDM - Abdominal Pain MDM Narrative Medical decision making narrative: [age] old female presents emergency department for evaluation for right lower quadrant pain. Patient's pain is resolved upon arrival emergency department. Patient is afebrile with no leukocytosis and a stable hemoglobin of 13.7. Patient has no significant abnormalities on her CMP. UA was negative for infection. CT abdomen pelvis was ordered due to pain and history of diverticulitis. CT scan showed no etiology for the patient's symptoms. On re-examination patient still soft and nontender. Differential Diagnosis Differential diagnosis: Likely abdominal pain, acute appendicitis, calculus of kidney, constipation, diverticulitis, gastroenteritis, pancreatitis, small bowel obstruction and other Lab Data Attestation: I reviewed the patient's lab results. 10/26/23 07:50 10/26/23 07:50 Labs: Lab Results 10/26/23 10/26/23 Range/Units 07:50 08:31 WBC 6.0 (4.5-10.0) K/mm3 RB
[2023-10-26 08:00] LABS: Basophils Percent Auto 0.7 % (0.2-1.2); Eosinophils Absolute Auto 0.1 K/mm3 (0-0.3); Hematocrit 42.5 % (37.0-47.0); Hemoglobin 13.7 g/dL (12.0-15.0); Immature Granulocyte Percent A 1.7 % (0-0.5); Lymphocytes Absolute Auto 1.35 K/mm3 (0.9-3.2); Lymphocytes Percent Auto 22.4 % (18.3-44.2); Mean Corpuscular HGB Conc 32.2 g/dl (32-36); Mean Corpuscular Hemoglobin 29.6 pg (26-34); Mean Corpuscular Volume 91.8 fl (80-100); Mean Platelet Volume 9.4 fl (7.4-10.4); Monocytes Absolute Auto 0.5 K/mm3 (0.1-0.6); Monocytes Percent Auto 8.4 % (2.6-8.5); Neutrophils Percent Auto 65.8 % (45.5-73.1); Platelet Count Result 264 k/mm3 (150-375); Red Blood Count 4.63 M/mm3 (4.2-5.4); Red Cell Distribution Width 12.8 % (11.5-14.5)
[2023-10-26 08:15] LABS: Alanine Aminotransferase 16 U/L (6-35); Alkaline Phosphatase 72 U/L (38-126); Anion Gap 9 mmol/L (4-12); Aspartate Amino Transferase 34 U/L (14-36); Blood Urea Nitrogen 14 mg/dL (7-17); Calcium 9.1 mg/dL (8.4-10.2); Carbon Dioxide 29 mmol/L (22-30); Chloride 99 mmol/L (98-107); Estimated CRCL calculation 78 ml/min; Estimated Glomerular Filt Rate > 60; Glucose 100 mg/dL (65-110); Lipase 95 U/L (23-300); Potassium 3.8 mmol/L (3.4-5.0); Sodium 137 mmol/L (137-145)
[2023-10-26 08:38] LABS: Add Urine Microscopic? NO; Appearance Urine Clear (Clear); Bilirubin Urine Negative (Negative); Blood Urine Negative (Negative); Color Urine Yellow (Yellow); Glucose Urine UA Negative (Negative); Ketones Urine Negative (Negative); Leukocyte Esterase Ur Negative LEU/UL (Negative); Nitrate Urine Negative (Negative); Protein Urine Negative (Negative); Specific Grav Ur 1.008 (1.001-1.035); Urobilinogen Urine 0.2 mg/dL (<2.0); pH Urine 7.5 (5.0-9.0)
== END 2023-10-26 09:52 | disposition home or self-care (01) ==
PROVIDERS: Emergency Provider Emergency Medicine; PCP Physician Assistant
DX: R10.31 Right lower quadrant pain (principal); E78.5 Hyperlipidemia, unspecified; E55.9 Vitamin D deficiency, unspecified; K21.9 Gastro-esophageal reflux disease without esophagitis
CPT/HCPCS: 36415; 74177; 80053; 81003; 83690; 85025; 99284; Q9967